=== PATIENT | male | born 1985 | race American Indian/Alaskan Native ===

== ENCOUNTER 2017-06-16 18:05 | Emergency (ER) | payer SELFPAY | END 2017-06-16 19:32 | disposition left against medical advice (07) | LOC: EEVIPCON 18:05 → ED 18:05 | DX: Z00.8 Encounter for other general examination (principal); Z53.21 Procedure and treatment not carried out due to patient leaving prior to being seen by health care provider ==

== ENCOUNTER 2022-04-26 10:08 | Emergency (ER) | payer MEDICARE, MEDICAID | END 2022-04-26 10:12 | disposition left against medical advice (07) | LOC: ED 10:08 | DX: R51.9 Headache, unspecified (principal); K08.89 Other specified disorders of teeth and supporting structures; Z53.21 Procedure and treatment not carried out due to patient leaving prior to being seen by health care provider ==